=== PATIENT | female | born 1985 | race Caucasian/White ===

== ENCOUNTER 2017-05-16 09:51 | Emergency (ER) | payer SELFPAY, MEDICAID | END 2017-05-16 11:46 | disposition left against medical advice (07) | LOC: FTE 11:46 | DX: Z53.21 Procedure and treatment not carried out due to patient leaving prior to being seen by health care provider (principal) ==

== ENCOUNTER 2017-11-20 05:45 | Inpatient (IN) | payer MEDICAID ==
[2017-11-20] MEDS ORDERED: LACTATED RINGER'S 1,000 ML IV (06:49)
[2017-11-20] MEDS ORDERED: OXYTOCIN 30 UNITS/LR 500 ML IV (07:00)
[2017-11-20] MEDS ORDERED: MISOPROSTOL 200 MCG TAB PR (07:00)
[2017-11-20] MEDS ORDERED: BUTORPHANOL 2 MG INJ IV (07:00)
[2017-11-20] MEDS ORDERED: CARBOPROST 250 MCG INJ IM (07:00)
[2017-11-20] MEDS ORDERED: METHYLERGONOVINE 0.2 MG INJ IM (07:00)
[2017-11-20] MEDS: LACTATED RINGER'S 1,000 ML IV* ×3 (07:44→23:24)
[2017-11-20] MEDS: AMPICILLIN 2 GM/NS (PMX) 100 ML IV (08:27)
[2017-11-20 09:17] LABS: ADD MAN DIFF? NO
[2017-11-20 09:22] LABS: ABNORMAL IP MESSAGE 1; BASOPHIL # 0.1 10^3/ul (0.0-0.1); BASOPHILS % 0.6 % (0.0-2.0); EOSINOPHILS # 0.1 10^3/ul (0.0-0.5); EOSINOPHILS % 1.2 % (0.0-7.0); HEMATOCRIT 37.6 % (37.0-47.0); HEMOGLOBIN 12.8 g/dl (12.0-16.0); IMMATURE GRANS #M 0.03 10^3/ul; IMMATURE GRANS % (M) 0.4 %; LYMPHOCYTES # 2.1 10^3/ul (0.8-2.9); LYMPHOCYTES % 26.3 % (15.0-51.0); MEAN CORPUSCULAR HEMOGLOBIN 30.6 pg (29.0-33.0); MEAN PLATELET VOLUME 13.5 fl (7.4-10.4); MONOCYTE # 0.7 10^3/ul (0.3-0.9); MONOCYTES % 8.4 % (0.0-11.0); NEUTROPHIL # 5.1 10^3/ul (1.6-7.5); NEUTROPHILS % 63.1 % (39.0-77.0); PLATELET COUNT 157 10^3/UL (140-415); POSITIVE DIFF @See below; RED BLOOD COUNT 4.18 10^6/ul (4.20-5.40); RED CELL DISTRIBUTION WIDTH 12.9 % (11.5-14.5)
[2017-11-20] MEDS ORDERED: MISOPROSTOL 100 MCG TAB PO (09:30)
[2017-11-20] MEDS ORDERED: MISOPROSTOL 25 MCG CAPSULE (09:39)
[2017-11-20 09:43] LABS: INR 0.86; PARTIAL THROMBOPLASTIN TIME 25.1 Sec (25.0-35.0); PROTIME 11.8 Sec (11.9-14.9); PT RATIO 0.9
[2017-11-20 10:17] LABS: HEPATITIS B SURFACE ANTIGEN NEGATIVE (NEGATIVE)
[2017-11-20] MEDS: MISOPROSTOL 25 MCG CAPSULE PO ×3 (11:11→17:00)
[2017-11-20] MEDS: AMPICILLIN 1 GM/NS (PMX) 50 ML IV ×4 (12:07→23:01)
[2017-11-20] MEDS: OXYTOCIN 30 UNITS/LR 500 ML IV (21:03)
[2017-11-20 21:53] LABS: RAPID PLASMA REAGIN NONREACTIVE (NR)
[2017-11-21] MEDS: LIDOCAINE 1% (MPF) 30 ML INJ INJ (00:28)
[2017-11-21] MEDS: OXYTOCIN 30 UNITS/LR 500 ML IV ×2 (00:37→01:11)
[2017-11-21] MEDS: IBUPROFEN 600 MG TAB PO ×4 (01:39→18:08)
[2017-11-21] MEDS: DEXTROSE 5%-LR 1,000 ML IV (02:32)
[2017-11-21] MEDS ORDERED: ONDANSETRON 4 MG INJ IV (03:00)
[2017-11-21] MEDS ORDERED: CARBOPROST 250 MCG INJ IM (03:00)
[2017-11-21] MEDS ORDERED: DIBUCAINE 1% 30 GM OINT PR (03:00)
[2017-11-21] MEDS ORDERED: ACETAMINOPHEN 325 MG TAB PO (03:00)
[2017-11-21] MEDS ORDERED: DIPHENHYDRAMINE 50 MG INJ IV (03:00)
[2017-11-21] MEDS ORDERED: SENNA/DOCUSATE NA (8.6MG/50MG) TAB PO (03:00)
[2017-11-21] MEDS ORDERED: OXYTOCIN 30 UNITS/LR 500 ML IV (03:00)
[2017-11-21] MEDS ORDERED: METHYLERGONOVINE 0.2 MG INJ IM (03:00)
[2017-11-21] MEDS ORDERED: ZOLPIDEM 5 MG TAB PO (03:00)
[2017-11-21] MEDS ORDERED: MAGNESIUM HYDROXIDE 30ML CUP PO (03:00)
[2017-11-21] MEDS ORDERED: MISOPROSTOL 200 MCG TAB PR (03:00)
[2017-11-21] MEDS: WITCH HAZEL/GLYCERIN PAD PR (03:43)
[2017-11-21] MEDS: LANOLIN 7 GM TUBE TOP (03:44)
[2017-11-21] MEDS: BENZOCAINE 20% 56 ML SPRAY TOP (03:44)
[2017-11-21] MEDS: LACTATED RINGER'S 1,000 ML IV* (05:09)
[2017-11-21] MEDS: HYDROCODONE/APAP (5/325) TAB PO (05:13)
[2017-11-21 12:16] LABS: RUBELLA ANTIBODY - IGM <20.00 AU/mL
[2017-11-22] MEDS: IBUPROFEN 600 MG TAB PO ×5 (00:24→23:36)
[2017-11-22 00:56] LABS: ADD MAN DIFF? NO
[2017-11-22 00:58] LABS: ABNORMAL IP MESSAGE 1; BASOPHILS % 0.4 % (0.0-2.0); EOSINOPHILS # 0.1 10^3/ul (0.0-0.5); EOSINOPHILS % 0.8 % (0.0-7.0); HEMATOCRIT 31.8 % (37.0-47.0); HEMOGLOBIN 10.5 g/dl (12.0-16.0); IMMATURE GRANS #M 0.05 10^3/ul; IMMATURE GRANS % (M) 0.5 %; LYMPHOCYTES % 20.9 % (15.0-51.0); MEAN CORPUSCULAR HEMOGLOBIN 29.7 pg (29.0-33.0); MEAN CORPUSCULAR VOLUME 90.1 fl (82.0-101.0); MEAN PLATELET VOLUME 13.5 fl (7.4-10.4); MONOCYTE # 0.6 10^3/ul (0.3-0.9); NEUTROPHIL # 6.7 10^3/ul (1.6-7.5); NEUTROPHILS % 71.4 % (39.0-77.0); PLATELET COUNT 151 10^3/UL (140-415); RED BLOOD COUNT 3.53 10^6/ul (4.20-5.40); RED CELL DISTRIBUTION WIDTH 13.4 % (11.5-14.5)
[2017-11-22 00:58] LABS: WHITE BLOOD COUNT 9.3 10^3/ul (4.8-10.8)
[2017-11-22 01:21] LABS: ALANINE AMINOTRANSFERASE 30 IU/L (13-69); ALBUMIN 2.5 g/dl (3.3-4.9); ALBUMIN/GLOBULIN RATIO 0.89; ALKALINE PHOSPHATASE 155 IU/L (42-121); ANION GAP 10 (8-16); ASPARTATE AMINO TRANSFERASE 43 IU/L (15-46); BILIRUBIN,INDIRECT 0.3 mg/dl (0-1.1); BILIRUBIN,TOTAL 0.3 mg/dl (0.2-1.3); BLOOD UREA NITROGEN 8 mg/dl (7-20); CALCIUM 8.5 mg/dl (8.4-10.2); CARBON DIOXIDE 22 mmol/L (21-31); CHLORIDE 109 mmol/L (97-110); CREATININE 0.62 mg/dl (0.44-1.00); GLUCOSE 126 mg/dl (70-220); POTASSIUM 3.5 mmol/L (3.5-5.1); SODIUM 137 mmol/L (135-144); TOTAL PROTEIN 5.3 g/dl (6.1-8.1)
[2017-11-22 01:23] LABS: POSITIVE DIFF @See below
[2017-11-22 01:37] LABS: FREE T4 (FREE THYROXINE) 0.65 ng/dl (0.79-2.35)
[2017-11-22 08:24] LABS: ADD MAN DIFF? NO
[2017-11-22 08:29] LABS: ABNORMAL IP MESSAGE 1; BASOPHIL # 0.1 10^3/ul (0.0-0.1); BASOPHILS % 0.7 % (0.0-2.0); EOSINOPHILS # 0.2 10^3/ul (0.0-0.5); EOSINOPHILS % 1.9 % (0.0-7.0); HEMATOCRIT 31.1 % (37.0-47.0); HEMOGLOBIN 10.4 g/dl (12.0-16.0); LYMPHOCYTES # 2.5 10^3/ul (0.8-2.9); LYMPHOCYTES % 31.4 % (15.0-51.0); MEAN CORPUSCULAR HEMOGLOBIN 30.4 pg (29.0-33.0); MEAN CORPUSCULAR HGB CONC 33.4 g/dl (32.0-37.0); MEAN CORPUSCULAR VOLUME 90.9 fl (82.0-101.0); MEAN PLATELET VOLUME 13.6 fl (7.4-10.4); MONOCYTE # 0.6 10^3/ul (0.3-0.9); MONOCYTES % 7.6 % (0.0-11.0); NEUTROPHIL # 4.7 10^3/ul (1.6-7.5); PLATELET COUNT 156 10^3/UL (140-415); RED BLOOD COUNT 3.42 10^6/ul (4.20-5.40); RED CELL DISTRIBUTION WIDTH 13.2 % (11.5-14.5)
[2017-11-22 08:30] LABS: POSITIVE DIFF @See below
[2017-11-22] MEDS: HYDROCODONE/APAP (5/325) TAB PO (20:05)
[2017-11-23] MEDS: IBUPROFEN 600 MG TAB PO ×2 (06:06→11:38)
[2017-11-23] MEDS: MEASLES,MUMPS,RUBELLA VACCINE INJ SC* (09:32)
[2017-11-23] MEDS: DIPHTH/TET/ACEL PERTUSS (ADULT) 0.5 ML VIAL IM* (11:37)
== END 2017-11-23 14:24 | disposition home or self-care (01) | DRG 775 ==
LOC: OBT 05:45 → PP1 11-21 02:57 → L-D 05:45 → OBT 06:32 → L-D 06:32
PROVIDERS: Obstetrics & Gynecology
PROC: 10E0XZZ Delivery of Products of Conception, External Approach (ICD-10-PCS; principal; 2017-11-21)
PROC: 0KQM0ZZ Repair Perineum Muscle, Open Approach (ICD-10-PCS; 2017-11-21)
PROC: 0UQMXZZ Repair Vulva, External Approach (ICD-10-PCS; 2017-11-21)
PROC: 3E033VJ Introduction of Other Hormone into Peripheral Vein, Percutaneous Approach (ICD-10-PCS; 2017-11-21)
DX: O48.0 Post-term pregnancy (principal); Z3A.40 40 weeks gestation of pregnancy; O70.1 Second degree perineal laceration during delivery; Z37.0 Single live birth
CPT/HCPCS: 76815; 80053; 82962; 84439; 84443; 85025; 85610; 85730; 86592; 86762; 86850; 86900; 86901; 87340; 90715; 93005